=== PATIENT | female | born 2005 | race Two or more races ===

== ENCOUNTER 2025-03-21 12:12 | Emergency (ER) | payer MEDICAID, SELFPAY ==
[2025-03-21 12:33] VITALS: BP 131/85; PULSE 89; RESP 16; TEMP 36.9; O2SAT 97; BMI 24.2
--- NOTE | 2025-03-21 12:43 | XR_ITS ---
Examination: CT abdomen and pelvis without contrast. Coronal 3-D reconstructions. Sagittal 2-D reconstructions. Date and time of exam: March 21, 2025, 1423 hours INDICATIONS: Generalized abdominal pain today CTDI: vol (mGy): 5.62 DLP: (mGycm): 302 Technique: Axial images of the abdomen have been obtained, 3 mm slice thickness Intravenous contrast material has not been administered. Low dose protocols were performed. One or more of the following dose reduction techniques were used; automated exposure control, adjustment of the mA and/or KV according to patient size, use of iterative reconstruction technique. Findings: No focal liver or splenic lesions No gallstones No pancreatic or adrenal mass 1 mm nonobstructing right renal calculus No hydronephrosis or ureteral calculi Aorta normal size No bowel obstruction Normal appendix No diverticulitis No pelvic mass No bladder mass or bladder calculi Intact osseous structures IMPRESSION: 1 mm nonobstructing right renal calculus, no hydronephrosis or ureteral calculi Normal appendix No bowel obstruction
[2025-03-21 13:32] LABS: Collection Type, Urine Clean Catch
[2025-03-21 13:39] LABS: Basophils # (Auto) 0.1 Thou/mm3 (0.0-0.2); Basophils % (Auto) 1 % (0-2.5); Eosinophils # (Auto) 0.1 Thou/mm3 (0.0-0.5); Eosinophils % (Auto) 1 % (0-10); Hematocrit 40.1 % (36.0-46.0); Hemoglobin 13.8 g/dL (12.0-16.0); Immature Granulocytes Auto 0.03 Thou/mm3 (0.00-0.00); Lymphocytes # (Auto) 1.8 Thou/mm3 (1.0-5.0); Lymphocytes % (Auto) 18 % (10-50); Mean Corpuscular HGB Conc 34.4 g/dl (31.0-37.0); Mean Corpuscular Hemoglobin 31.3 pg (25.0-35.0); Mean Corpuscular Volume 91 fL (80-100); Monocytes # (Auto) 0.4 Thou/mm3 (0.0-0.8); Monocytes % (Auto) 4 % (0-12); Neutrophils # (Auto) 7.5 Thou/mm3 (1.8-7.7); Neutrophils % (Auto) 76 % (37-80); Nucleated Red Blood Cell # 0.00 Thou/mm3 (0.00-0.00); Nucleated Red Blood Cell % 0 /100 WBC (0); Platelet Count 261 Thou/mm3 (140-440); RDW Standard Deviation 40.0 fL (36.4-46.3); Red Blood Count 4.41 Miln/mm3 (4.00-5.20); White Blood Count 9.9 Thou/mm3 (4.5-11.0)
[2025-03-21 13:44] LABS: HCG Qualitative,Urine Negative
[2025-03-21 13:46] LABS: Bilirubin,Urine Negative (Negative); Blood,Urine 3+ (Negative); Color,Urine Colorless (Lt Yel-Yel); Glucose, Urine Negative (Negative); Ketones,Urine Negative (Negative); Leukocyte Esterase,Urine Positive (Negative); Nitrite,Urine Negative (Negative); PH,Urine 7.5 (5.0-7.0); Protein,Urine Trace (Neg - Trace); RBC,Urine 11 /hpf (0-3); Specific Gravity,Urine 1.015 (1.001-1.035); Squamous Epithelial Cell,Urine 7 /hpf (0-5); Urobilinogen,Urine Negative mg/dL (0.0-1.0); WBC,Urine 26 /hpf (0-5)
[2025-03-21 13:48] LABS: Clarity,Urine Hazy (Clear/Hazy)
[2025-03-21 14:08] LABS: Alanine Aminotransferase 8 U/L (10-49); Albumin, Serum 5.0 gm/dL (3.5-5.0); Albumin/Globulin Ratio 1.8 (1.2-2.2); Alkaline Phosphatase 96 U/L (46-116); Anion Gap 10 (7-16); Aspartate Amino Transferase 16 U/L (0-34); BUN/Creatinine Ratio 12 Ratio (12-20); Bilirubin,Total 0.5 mg/dL (0.3-1.2); Blood Urea Nitrogen 7 mg/dL (9-23); Calcium 9.4 mg/dL (8.3-10.6); Calcium (Corrected) 9.4 mg/dL (8.5-10.1); Carbon Dioxide 25.0 mMol/L (20.0-31.0); Chloride 107 mMol/L (98-107); Creatinine (Component) 0.6 mg/dL (0.6-1.3); Estimated Creatinine Clearance 118.6 mL/min (>60); Globulin 2.8 gm/dL (2.3-3.5); Glucose 93 mg/dL (74-106); Lipase 30 U/L (12-53); Osmolality,Calculated 281 (275-295); Potassium 4.0 mMol/L (3.4-5.1); Sodium 142 mMol/L (136-145); Total Protein 7.8 gm/dL (5.7-8.2); eGFR > 60 See Note
--- NOTE | 2025-03-21 16:06 | PD.EDABDPN ---
ED Abdominal Pain RME/HPI General Chief Complaint: Abdominal Pain Stated complaint: RLQ ABD PAIN, SENT BY [facility] Time seen by provider: 03/21/25 12:30 Arrival date/time: 03/21/25 12:12 This is a case of 19-year-old female with no medical history came into the emergency room due to right flank pain radiating to right lower abdomen for 1 day associated with nausea vomiting patient denies patient was seen by a family healthcare and was further evaluation and treatment no other symptoms noted Limitations: no limitations Related Data Previous Rx's ?Medication ?Instructions ?Recorded cephalexin 500 mg capsule 500 mg PO QID #40 caps 03/21/25 ibuprofen 600 mg tablet 600 mg PO Q8H PRN pain #20 tabs 03/21/25 ondansetron 4 mg disintegrating 4 mg PO Q8H #20 tabs 03/21/25 tablet tamsulosin 0.4 mg capsule (Flomax) 0.4 mg PO QDAY #10 caps 03/21/25 Allergies Allergy/AdvReac Type Severity Reaction Status Date / Time No Known Allergies Allergy Verified 03/21/25 12:17 Review of Systems Review of Systems Systems Reviewed: All systems reviewed, normal except as documented Constitutional Constitutional: Reports system reviewed and no additional complaints, except as documented and Reports as per HPI ENT Ears, Nose, Mouth, and Throat: Denies dysphagia and Denies odynophagia Cardiovascular Cardiovascular: Reports system reviewed and no additional complaints, except as documented and Reports as per HPI Respiratory Respiratory: Reports system reviewed and no additional complaints, except as documented and Reports as per HPI Gastrointestinal Gastrointestinal: Reports system reviewed and no additional complaints, except as documented, Reports as per HPI, Reports abdominal pain, Denies belching, Denies bloating, Denies change in bowel habits, Denies change in stool character, Denies coffee ground emesis, Denies constipation, Denies cramping, Denies diarrhea, Denies dyspepsia, Denies dysphagia, Denies early satiety, Denies excessive flatus, Denies fecal incontinence, Denies heartburn, Denies hematemesis, Denies hematochezia, Denies loose stools, Denies melena, Reports nausea, Denies odynophagia, Reports tenesmus and Denies vomiting Musculoskeletal Musculoskeletal: Reports system reviewed and no additional complaints, except as documented and Reports as per HPI Neurologic Neurologic: Reports system reviewed and no additional complaints, except as documented and Reports as per HPI Past Medical History Social History SMOKING STATUS: Never smoker ED Exam General Limitations: Present no limitations General appearance: Present alert, in no apparent distress and other (Patient is awake alert oriented not in distress nontoxic looking well-hydrated well nourished) Head Head exam: Present atraumatic, normocephalic and normal inspection Eye Eye exam: Present normal appearance, PERRL and EOMI ENT ENT exam: Present normal exam, normal oropharynx and mucous membranes moist Neck Neck exam: Present normal inspection, full ROM and trachea midline; Absent tenderness, meningismus, lymphadenopathy or thyromegaly Chest Chest inspection: Present normal inspection and symmetric chest wall rise; Absent tenderness Respiratory Respiratory exam: Present normal lung sounds bilaterally; Absent respiratory distress, wheezes, stridor, accessory muscle use or prolonged expiratory phase Cardiovascular Cardiovascular exam: Present regular rate, normal rhythm and normal heart sounds; Absent bradycardia, tachycardia, irregular rhythm, systolic murmur or diastolic murmur Abdominal Exam Abdominal exam: Present soft, tenderness (Moderate tenderness on the right lower quadrant and right flank but no CVA tenderness bladder is not distended nontender) and normal bowel sounds; Absent distention, guarding, rebound, rigidity, diminished bowel sounds, hyperactive bowel sounds, hypoactive bowel sounds, organomegaly, trauma, psoas sign, Gaming's sign, Rovsing's sign or tenderness at McBurney's Point Extremities Exam Extremities exam: Present normal inspection and full ROM Back Exam Back exam: Present normal inspection and full ROM Neurological Exam Neurological exam: Present alert, oriented X3, CN II-XII intact, normal gait and reflexes normal; Absent motor sensory deficit Psychiatric Psychiatric exam: Present normal affect and normal mood Skin Skin exam: Present warm, dry, intact, normal color and other (excellent skin turgor) Course Quality Measures none Orders Category Date Time Status CT abdomen pelvis wo con Stat Exams 03/21/25 12:43 Completed CBC Stat Lab 03/21/25 13:12 Completed Comprehensive Metabolic Panel Stat Lab 03/21/25 13:12 Completed HCG Qualitative,Urine Stat Lab 03/21/25 13:20 Completed Lipase Stat Lab 03/21/25 13:12 Completed Urinalysis Stat Lab 03/21/25 13:20 Completed HYDROcodone*/APAP 5/325 [Monson 5/325] Med 03/21/25 15:37 Discontinued 1 tab PO X1 ONE cefTRIAXone [Rocephin] 1,000 mg Med 03/21/25 15:37 Discontinued Lidocaine 1% Pf Vial 5ml [Xylocaine 1% 5 ml] 2.1 ml IM X1 Vital Signs Vital signs: Vital Signs Temperature 98.4 F 03/21/25 12:33 Pulse Rate 89 03/21/25 12:33 Respiratory Rate 16 03/21/25 12:33 Blood Pressure 131/85 H 03/21/25 12:33 Pulse Oximetry (%) 97 03/21/25 12:33 Oxygen Delivery Method Room Air 03/21/25 12:33 oxygen saturation 97 room air Abdominal Pain MDM MDM Narrative MDM Narrative:: This is a case of 19-year-old female with no medical history came into the emergency room due to right flank pain radiating to right lower abdomen for 1 day associated with nausea vomiting patient denies patient was seen by a family healthcare and was further evaluation and treatment no other symptoms noted physical examination patient is awake alert oriented not in distress nontoxic looking well-hydrated well-nourished no signs and symptoms of sepsis dehydration or acute abdomen mild tenderness on the right lower quadrant and right flank but no guarding no rebound no rigidity negative psoas negative straight or negative Rovsing's negative McBurney's negative Gaming sign negative CVA tenderness bladder is nondistended nontender with excellent skin turgor blood test showed no leukocytosis no anemia kidney and liver function is normal no electrolyte imbalance noted WBC in the urine suggestive of urinary tract infection CT scan showed a 1 mm kidney stone patient was discharged with cephalexin and Flomax for urinary tract infection and nephrolithiasis and ibuprofen for pain Zofran for vomiting patient will follow-up with PCP in 2 days for reevaluation and to be referred to urologist for further evaluation and treatment of nephrolithiasis worsening symptoms or emergent concern return precaution in the ER is advised Patient was discharged with comfortable condition walking with stable gait. Patient verbalized no further complains explained diagnosis and answered patient question. Patient is comfortable with the proposed management plan including the need to follow up with his/her primary care physician and any specialist if applicable Discussed patient for any urgent condition or worsening sx, He/She needed to go to emergency room immediately or call 911. Patient acknowledge the responsibility to follow up as instructed and to monitor her/his symptoms. For any persistence of the symptoms for more than 3-5 days return precaution advised. Discussed the result of the test and was given printed discharge instruction Patient data External records reviewed:: [facility] previous records Clinical information provided by:: patient Social determinants that could affect healthcare access:: none Patient has the following chronic illnesses:: None How is presenting disease/condition affected by chronic disease/condition?: no chronic disease Evaluation data The following diagnostics were reviewed and interpreted by me:: lab results and radiology exam(s) Lab and/or radiology exams considered but not ordered:: reviewed Interpretation Summary: reviewed Medications / Prescriptions Medications or Prescriptions considered but not ordered:: given Medication administrations:: Medication Administration History Discontinued Medications Hydrocodone Bitart/Acetaminophen (Hydrocodone/Apap 5/325 Tablet) 1 tab PO X1 ONE Stop: 03/21/25 15:38 Ceftriaxone Sodium 1,000 mg/ (Lidocaine HCl 2.1 ml) 0 mg IM X1 ONE Stop: 03/21/25 15:38 given Consultations Consultation(s) initiated? (list below): No Diagnosis Differential diagnosis abdominal pain: abdominal pain, acute appendicitis, calculus of kidney, constipation, diverticulitis, pancreatitis and small bowel obstruction Most likely diagnosis given after review of the tests above:: UTI kidney stone Admission Indicated Admission indicated?: not indicated Explain why admission is indicated or not indicated:: not indicated Admission Request Was there a request for admission?: No Admission Attestation Admission request attestation: not indicated Disposition Plan Disposition Plan: Discharge Discharge Attestation Discharge Attestation: The patient and all family members were given an opportunity to ask questions and understood the discharge instructions. Discharge instructions specifically effects, indications for sooner follow up or return to the emergency department, and the expected course of current diagnosis. Patient condition: Stable Discharge Plan Plan Patient Disposition: HOME (Self Care) Prescriptions/Referrals Prescriptions/Med Rec: New cephalexin 500 mg capsule 500 mg PO QID Qty: 40 0RF tamsulosin [Flomax] 0.4 mg capsule 0.4 mg PO QDAY Qty: 10 0RF ibuprofen 600 mg tablet 600 mg PO Q8H PRN (Reason: pain) Qty: 20 0RF ondansetron 4 mg tablet,disintegrating 4 mg PO Q8H Qty: 20 0RF Referrals: Nickolas Caicedo MD [Primary Care Provider, Family Practice] - In 1 week Problem List Clinical Impression: Abdominal pain, Nephrolithiasis, Urinary tract infection Patient/Caregiver Discharge Instructions Education Materials: Abdominal Pain, Urinary Tract Infections in Women, Kidney Stones Your Evaluation Additional Instructions: Follow-up with your primary care physician in 2 days for reevaluation and to be referred to urologist for further evaluation and treatment of kidney stone recurrence persistent worsening symptoms or any emergent concern call 911 or go to the nearest emergency room take your medication as directed finish the course of antibiotic Pedialyte Gatorade for hydration increase water intake Print Language: Qatari Stand Alone Forms: Cat Award Info., Patient Portal Info Letter PA/ALL SOURCE COLLECTION MANAGER Supervising Physician PA/ALL SOURCE COLLECTION MANAGER Supervising Physician: Dr Carlos
[2025-03-21] MEDS: HYDROcodone/APAP 5/325 TABLET 1 TAB PO (16:10)
== END 2025-03-21 16:48 | disposition home or self-care (01) ==
PROVIDERS: Nurse Practitioner Family; Emergency Provider Emergency Medicine; PCP Family Medicine
DX: N20.0 Calculus of kidney (principal); N39.0 Urinary tract infection, site not specified
CPT/HCPCS: 36415; 74176; 80053; 81001; 81025; 83690; 85025; 96372; 99283; J0696; J3490; A9270